=== PATIENT | male | born 1965 | race Two or more races ===

== ENCOUNTER 2022-02-24 05:08 | Emergency (ER) | payer OTHER ==
[~2022-02-24] VITALS: Ht 167.6 cm; Wt 72.7 kg
[2022-02-24] MEDS ORDERED: PROPARACAINE HCL 0.5% 15 ML OPHTHALMIC SOLUTION OU ONE (06:45)
[2022-02-24] MEDS ORDERED: IBUPROFEN 600 MG TABLET PO ONE (07:00)
[2022-02-24] MEDS ORDERED: OFLOXACIN 0.3% 5 ML OPHTHALMIC SOLUTION OU ONE (07:00)
[2022-02-24 07:23] VITALS: BP 119/72
== END 2022-02-24 08:52 | disposition home or self-care (01) ==
LOC: EMS 05:11
DX: Z77.098 Contact with and (suspected) exposure to other hazardous, chiefly nonmedicinal, chemicals (principal); H57.89 Other specified disorders of eye and adnexa
CPT/HCPCS: 99284; Z7502; Z7610